=== PATIENT | female | born 1955 | race Caucasian/White ===

== ENCOUNTER 2023-02-01 20:10 | Observation (INO) | payer MEDICARE ==
[~2023-02-01] VITALS: Ht 167.6 cm; Wt 54.4 kg
[2023-02-01 14:30] VITALS: PULSE 54; RESP 18; O2SAT 100
[2023-02-01 20:37] VITALS: BP 145/65; PULSE 60; RESP 18; TEMP 98.5; O2SAT 97
[2023-02-01] MEDS ORDERED: SUBLIMAZE 100MCG/2ML IM STA (20:38)
[2023-02-01] MEDS ORDERED: ZOFRAN IV PRN ×2 (21:00→23:00)
[2023-02-01] MEDS ORDERED: ZOFRAN ONE (21:01)
[2023-02-01 21:02] LABS: BASOPHIL % 0.4 % (0.0-0.2); EOSINOPHIL % 0.2 % (0.0-5.0); HEMATOCRIT(ML) 35.9 % (36.0-46.0); HEMOGLOBIN 12.2 g/dL (12.0-15.0); LYMPHOCYTES # 1.32 10^3/uL1 (1.0-4.8); LYMPHOCYTES % 16.2 % (24.0-44.0); MEAN CORP HGB 32.4 pg (26-34); MEAN CORP VOLUME 95.2 fL (78-100); MONOCYTES # 0.6 10^3/uL (0.3-0.8); MONOCYTES % 6.9 % (5.0-12.0); NEUTROPHIL # 6.2 10^3/uL (1.8-7.7); NEUTROPHILS % 75.9 % (41.0-85.0); PLATELET COUNT 279 10^3/uL (150-400); RED BLOOD CELL 3.77 10^6/uL (4.00-5.20); RED CELL DISTRIBUTION WIDTH 12.8 % (11.5-14.5); WHITE BLOOD CELL 8.1 10^3/uL (4.5-11.0)
[2023-02-01] MEDS ORDERED: SUBLIMAZE 100MCG/2ML ONE (21:02)
[2023-02-01 21:06] LABS: +ADD MANUAL DIFF(NO CHRG) NO
[2023-02-01 21:18] LABS: ALBUMIN/GLOBULIN RATIO 0.714; ANION GAP 16.2; BUN/CREATININE RATIO 13.75 (10.0-20.0); CALCIUM 9.9 mg/dL (8.4-10.5); CARBON DIOXIDE 22.5 mmol/L (20.0-32); CREATININE SERUM 0.8 mg/dL (0.59-1.40); POTASSIUM 3.7 mmol/L (3.6-5.2)
[2023-02-01 21:18] LABS: BILIRUBIN,URINE NEGATIVE (NEGATIVE); LEUKOCYTE ESTERASE ,URINE 2+ (NEGATIVE); NITRATE,URINE NEGATIVE (NEGATIVE); PH,URINE 6.5 (4.5-8.0); UROBILINOGEN,URINE 0.2 E.U./dL (0.2)
[2023-02-01 21:21] LABS: APPEARANCE,URINE CLEAR; UA COLOR YELLOW
[2023-02-01 21:24] LABS: UAMPH METHAMP(SCRN) NEGATIVE (co1000ng/mL); UR MDMA (ECSTASY) SCRN NEGATIVE (c/o300ng/mL); UR METHADONE SCRN NEGATIVE (c/o300ng/mL); UR OPIATE SCRN NEGATIVE (c/o300ng/mL); UR PHENCYCLIDINE (PCP) SCRN NEGATIVE (c/o 25ng/mL)
[2023-02-01] MEDS ORDERED: NS 1000ML 1,000 ML ONE (21:24)
[2023-02-01 21:26] LABS: UR TETRAHYDROCANNABINOL SCRN PRESUMPTIVE POSITIVE (c/o 50ng/mL)
[2023-02-01 21:30] VITALS: BP 136/60; PULSE 63; RESP 18; TEMP 98.5; O2SAT 97
[2023-02-01 22:05] VITALS: BP 131/71; PULSE 60; RESP 18; TEMP 98.5; O2SAT 97
[2023-02-01 22:50] VITALS: BP 123/91; PULSE 76; RESP 20; TEMP 97.5; O2SAT 100
[2023-02-01] MEDS ORDERED: LOVENOX SQ STA (22:53)
[2023-02-01] MEDS ORDERED: NICOTINE 14MG PATCH TD PRN (23:00)
[2023-02-01] MEDS ORDERED: TORADOL IV PRN (23:00)
[2023-02-01] MEDS ORDERED: TYLENOL PO PRN (23:00)
[2023-02-01] MEDS ORDERED: NS 1000ML 1,000 ML IV ONE (23:00)
[2023-02-01] MEDS ORDERED: LOVENOX ONE (23:52)
[2023-02-02] VITALS (26 sets, daily range): BP systolic 108–144; BP diastolic 59–94; PULSE 62–79; RESP 16–18; TEMP 97–98.6; O2SAT 92–99
[2023-02-02] MEDS ORDERED: LOVENOX SQ ONE
[2023-02-02] MEDS ORDERED: LOVENOX SQ SCH (08:30)
[2023-02-02] MEDS: DUONEB 0.5-3(2.5) MG/3 ML IH SCH ×2 (08:45→14:36)
[2023-02-02] MEDS ORDERED: PROTONIX IV IV SCH (09:00)
[2023-02-02] MEDS ORDERED: WATER ONE (10:12)
[2023-02-02] MEDS ORDERED: SODIUM CHLORIDE IRR BOTTLE IR ONE (10:12)
[2023-02-02] MEDS ORDERED: ISOTON GENTAMICIN 80 MG/100 ML 100 ML IV ONE (10:12)
[2023-02-02] MEDS ORDERED: ZYNRELEF 200-6 MG/7 ML VIAL IL ONE ×2 (10:13→11:07)
[2023-02-02] MEDS ORDERED: VERSED ONE (10:15)
[2023-02-02] MEDS ORDERED: ZOFRAN ONE ×3 (10:24→13:37)
[2023-02-02] MEDS ORDERED: MEFOXIN ONE (10:25)
[2023-02-02] MEDS ORDERED: NS 100ML 100 ML IV ONE (10:25)
[2023-02-02] MEDS ORDERED: REGLAN ONE ×2 (10:31→13:29)
[2023-02-02] MEDS ORDERED: PEPCID IV ONE ×2 (10:31→11:00)
[2023-02-02] MEDS ORDERED: ZOFRAN IV ONE ×2 (11:00→13:38)
[2023-02-02] MEDS ORDERED: MEFOXIN 2 GM in NS 100ML 100 ML IV ONE (11:00)
[2023-02-02] MEDS ORDERED: VERSED IV ONE (11:00)
[2023-02-02] MEDS ORDERED: REGLAN IV ONE ×2 (11:00→13:30)
[2023-02-02] MEDS ORDERED: SENSORCAINE-MPF 0.25% VIAL ONE (11:08)
[2023-02-02] MEDS ORDERED: LACTATED RINGERS 1,000 ML ONE ×3 (11:25→13:48)
[2023-02-02] MEDS ORDERED: TORADOL ONE (11:25)
[2023-02-02] MEDS ORDERED: OFIRMEV 1000 MG/100 ML 100 ML IV ONE (11:25)
[2023-02-02] MEDS ORDERED: XYLOCAINE 2% 5ML VIAL ONE (11:25)
[2023-02-02] MEDS ORDERED: DECADRON ONE (11:25)
[2023-02-02] MEDS ORDERED: BRIDION IV ONE (11:25)
[2023-02-02] MEDS ORDERED: DILAUDID ONE (11:26)
[2023-02-02] MEDS ORDERED: SUBLIMAZE 100MCG/2ML ONE (11:26)
[2023-02-02] MEDS ORDERED: DIPRIVAN IV ONE (11:27)
[2023-02-02] MEDS ORDERED: MEFOXIN 2 GM in NS 100ML 100 ML IV SCH (11:30)
[2023-02-02] MEDS ORDERED: PHENERGAN ONE (13:59)
[2023-02-02] MEDS ORDERED: PHENERGAN IV ONE (14:00)
== END 2023-02-02 18:00 | disposition home or self-care (01) ==
LOC: ER 20:10 → MS 22:00
PROVIDERS: ADMIT Internal Medicine; ATTEND Internal Medicine
DX: K40.30 Unilateral inguinal hernia, with obstruction, without gangrene, not specified as recurrent (principal); J44.9 Chronic obstructive pulmonary disease, unspecified; F17.210 Nicotine dependence, cigarettes, uncomplicated; F12.90 Cannabis use, unspecified, uncomplicated; R10.31 Right lower quadrant pain; Z79.899 Other long term (current) drug therapy
CPT/HCPCS: 96372 ×2; 99291; 96374; 87086; 71045; 80053; 85025; 36415; 80307; 81001; 87186; 83690; 87077; 93005; 49507; 96375; 94640; G0378 ×3; J7030; J1650 ×2; J2405 ×2; J3010 ×2; J1580; J7120; A6222; A6258; J1100; J0694; A4217; J1170; J0131; J3490 ×3; J2001; J2250; J1885; J2550; J2765; C9113; 80349; C1781; G0480

== ENCOUNTER 2023-02-16 13:52 | Emergency (ER) | payer MEDICARE ==
[~2023-02-16] VITALS: Ht 167.6 cm; Wt 56.7 kg
[2023-02-16 14:10] VITALS: BP 141/84; PULSE 58; RESP 18; TEMP 97.9; O2SAT 97
[2023-02-16 14:51] LABS: BASOPHIL % 0.4 % (0.0-0.2); EOSINOPHIL # 0.1 10^3/uL (0.0-0.2); EOSINOPHIL % 1.1 % (0.0-5.0); HEMATOCRIT(ML) 36.6 % (36.0-46.0); LYMPHOCYTES # 1.88 10^3/uL1 (1.0-4.8); LYMPHOCYTES % 23.5 % (24.0-44.0); MEAN CORP HGB 32.5 pg (26-34); MEAN CORP HGB CONCENTRATION 32.8 g/dL (33-36.5); MEAN CORP VOLUME 99.2 fL (78-100); MONOCYTES # 0.6 10^3/uL (0.3-0.8); MONOCYTES % 7.5 % (5.0-12.0); NEUTROPHIL # 5.3 10^3/uL (1.8-7.7); NEUTROPHILS % 66.7 % (41.0-85.0); PLATELET COUNT 431 10^3/uL (150-400); RED BLOOD CELL 3.69 10^6/uL (4.00-5.20); RED CELL DISTRIBUTION WIDTH 13.7 % (11.5-14.5)
[2023-02-16 14:58] LABS: BILIRUBIN,URINE NEGATIVE (NEGATIVE); LEUKOCYTE ESTERASE ,URINE 3+ (NEGATIVE); NITRATE,URINE NEGATIVE (NEGATIVE); UROBILINOGEN,URINE 0.2 E.U./dL (0.2)
[2023-02-16 15:05] LABS: APPEARANCE,URINE CLEAR; UA COLOR YELLOW
[2023-02-16 15:12] LABS: ALBUMIN(ML) 3.9 g/dL (3.4-5.0); ALBUMIN/GLOBULIN RATIO 1.026; ANION GAP 12.3; BUN/CREATININE RATIO 18.94 (10.0-20.0); CALCIUM 9.7 mg/dL (8.4-10.5); CARBON DIOXIDE 25.3 mmol/L (20.0-32); CREATININE SERUM 0.95 mg/dL (0.59-1.40); POTASSIUM 3.6 mmol/L (3.6-5.2)
[2023-02-16 15:18] LABS: +ADD MANUAL DIFF(NO CHRG) NO
[2023-02-16] MEDS ORDERED: ROCEPHIN IV STA (15:31)
[2023-02-16] MEDS ORDERED: ROCEPHIN ONE (15:34)
[2023-02-16] MEDS ORDERED: NS 50ML 50 ML IV ONE (15:35)
[2023-02-16 15:56] VITALS: BP 128/71; PULSE 66; RESP 18; O2SAT 98
== END 2023-02-16 16:00 | disposition home or self-care (01) ==
LOC: ER 13:52
DX: N39.0 Urinary tract infection, site not specified (principal); F12.90 Cannabis use, unspecified, uncomplicated; Z88.2 Allergy status to sulfonamides; Z88.5 Allergy status to narcotic agent
CPT/HCPCS: 99284; 96374; 87086; 80053; 85025; 36415; 81001; 93005; J0696; 87077; 87186

== ENCOUNTER 2023-06-08 07:55 | Day surgery (SDC) | payer MEDICARE ==
[2023-06-03 10:11] VITALS: BP 123/85; PULSE 65; RESP 18; TEMP 98.9; O2SAT 97
[2023-06-03 10:45] LABS: BASOPHIL # 0.1 10^3/uL (0.0-0.1); BASOPHIL % 1.1 % (0.0-0.2); EOSINOPHIL # 0.1 10^3/uL (0.0-0.2); EOSINOPHIL % 2.9 % (0.0-5.0); HEMATOCRIT(ML) 39.2 % (36.0-46.0); HEMOGLOBIN 12.8 g/dL (12.0-15.0); LYMPHOCYTES # 1.45 10^3/uL1 (1.0-4.8); LYMPHOCYTES % 32.8 % (24.0-44.0); MEAN CORP HGB 32.1 pg (26-34); MEAN CORP HGB CONCENTRATION 32.7 g/dL (33-36.5); MEAN CORP VOLUME 98.2 fL (78-100); MONOCYTES # 0.5 10^3/uL (0.3-0.8); MONOCYTES % 11.5 % (5.0-12.0); NEUTROPHIL # 2.2 10^3/uL (1.8-7.7); NEUTROPHILS % 50.8 % (41.0-85.0); PLATELET COUNT 298 10^3/uL (150-400); RED BLOOD CELL 3.99 10^6/uL (4.00-5.20); WHITE BLOOD CELL 4.4 10^3/uL (4.5-11.0)
[2023-06-03 10:47] LABS: +ADD MANUAL DIFF(NO CHRG) NO
[2023-06-03 11:03] LABS: ALBUMIN(ML) 3.7 g/dL (3.4-5.0); ALBUMIN/GLOBULIN RATIO 1.088; ANION GAP 11.8; BUN/CREATININE RATIO 13.09 (10.0-20.0); CALCIUM 9.1 mg/dL (8.4-10.5); CARBON DIOXIDE 24.9 mmol/L (20.0-32); CREATININE SERUM 0.84 mg/dL (0.59-1.40); POTASSIUM 3.7 mmol/L (3.6-5.2)
[2023-06-03 11:16] LABS: INR 0.9; PROTHROMBIN PROTIME 9.9 SEC (9.7-11.6)
[2023-06-08] VITALS (22 sets, daily range): BP systolic 112–151; BP diastolic 64–90; PULSE 52–77; RESP 16; TEMP 97.4–97.9; O2SAT 91–98
[~2023-06-08] VITALS: Ht 167.6 cm; Wt 55.3 kg
[~2023-06-08 07:55] MED LIST: ACET325T12 PO; BRIDION IV ONE; DECADRON ONE; DIAZ5TAB PO; DILAUDID ONE; DIPRIVAN IV ONE; IBUP-1856 PO; ISOTON GENTAMICIN 80 MG/100 ML 100 ML IV ONE; LACTATED RINGERS 1,000 ML ONE; LOVENOX ONE; MEFOXIN ONE; NS 100ML 100 ML IV ONE; NS 3000ML IRR IR ONE; OFIRMEV 1000 MG/100 ML 100 ML IV ONE; PANT40TA6 PO; PEPCID IV ONE; SENSORCAINE-MPF 0.25% VIAL ONE; SODIUM CHLORIDE IRR BOTTLE IR ONE; SUBLIMAZE 100MCG/2ML ONE; TORADOL ONE; VERSED ONE; ZOFRAN ONE; ZYNRELEF 200-6 MG/7 ML VIAL IL ONE
[2023-06-08] MEDS: LACTATED RINGERS 1,000 ML IV SCH (08:10)
[2023-06-08] MEDS ORDERED: PEPCID IV ONE (08:17)
[2023-06-08] MEDS: LOVENOX SQ ONE (08:23)
[2023-06-08] MEDS ORDERED: EXPAREL 266 MG/20 ML VIAL IJ ONE (08:32)
[2023-06-08] MEDS ORDERED: DIPRIVAN IV ONE (09:29)
[2023-06-08] MEDS: MEFOXIN 2 GM in NS 100ML 100 ML IV ONE (09:32)
[2023-06-08] MEDS ORDERED: DILAUDID ONE (11:50)
[2023-06-08] MEDS: DILAUDID IV ONE (11:52)
[2023-06-08] MEDS: REGLAN IV SCH (12:22)
[2023-06-08] MEDS ORDERED: REGLAN ONE (12:22)
[2023-06-08] MEDS ORDERED: TRANSDERM-SCOP TD ONE ×2 (13:15→13:30)
== END 2023-06-08 13:30 | disposition home or self-care (01) ==
LOC: SDC 07:55
PROVIDERS: ATTEND Surgery
DX: K41.31 Unilateral femoral hernia, with obstruction, without gangrene, recurrent (principal); K21.9 Gastro-esophageal reflux disease without esophagitis; K80.18 Calculus of gallbladder with other cholecystitis without obstruction; K30 Functional dyspepsia; F17.210 Nicotine dependence, cigarettes, uncomplicated; Z79.01 Long term (current) use of anticoagulants; Z79.899 Other long term (current) drug therapy; Z88.6 Allergy status to analgesic agent; Z88.8 Allergy status to other drugs, medicaments and biological substances
CPT/HCPCS: 80053; 85025; 36415; 85610; 85730; 49553; 88302; C9290; J1580; J7120 ×2; A6222; A6258; J1100; J0694; A4217; J1170 ×2; J0131; J3490 ×4; J2704 ×2; J1650; J2405; J2250; J1885; J3010; J2765; C1781; C1725